=== PATIENT | female | born 1975 | race Caucasian/White ===

== ENCOUNTER 2018-01-20 09:11 | Outpatient (CLI) | payer OTHER | END 2018-01-20 09:22 | disposition home or self-care (01) | LOC: RX STUDY 09:11 | DX: N93.9 Abnormal uterine and vaginal bleeding, unspecified (principal) ==

== ENCOUNTER → 2024-10-30 | Emergency (ER) | payer OTHER ==
[~2024-10-30] VITALS: Ht 162.6 cm; Wt 122.5 kg
[~2024-10-30] MED LIST: IPRATROPIUM/ALBUTEROL SULFATE 3 ML AMPUL.NEB IH SCH; METHYLPREDNISOLONE SOD SUCC 125 MG VIAL IV ONE
== END | disposition left against medical advice (07) ==
LOC: ER 17:21
DX: R05.8 Other specified cough (principal)